=== PATIENT | female | born 1990 | race Caucasian/White ===

== ENCOUNTER → 2017-12-05 | Outpatient (CLI) | payer BC ==
[~2017-12-05] MED LIST: AMOXICILLIN 50500 MG PO; DROSPIRENONE; NORCO 325 MG-7.1 TAB PO
== END ==
LOC: COL.RAD 12:31
DX: N20.0 Calculus of kidney (principal); N28.9 Disorder of kidney and ureter, unspecified; M54.5 Low back pain; R31.9 Hematuria, unspecified